=== PATIENT | male | born 1965 | race Caucasian/White ===

== ENCOUNTER 2016-06-05 15:15 | Emergency (ER) | payer OTHER ==
[2016-06-05] MEDS ORDERED: CYCLOBENZAPRINE HCL 10 MG TABLET PO ONE (16:04)
[2016-06-05] MEDS ORDERED: ACETAMINOPHEN 325 MG TABLET PO ONE (16:04)
--- NOTE | 2016-06-05 16:10 | ER Document Report ---
HPI - HPI Patient complains to provider of: back pain Pain Level: 4 Context: Patient is a 50-year-old male presents emergency Department complaining of back pain. Patient states he was bending over to pick something up off the ground when he stood up quickly and felt a tweak in his back. Patient is been ambulatory minor limp due to pain in his back with radiation along the sciatic nerve along the left side. Denies any numbness or tingling feeling in his feet. Denies any urinary/incontinence, saddle anesthesia Past medical history significant for previous femur fracture the right leg. - DERM Skin Color: Normal Past Medical History - Social History Smoking Status: Current Every Day Smoker Family History: Reviewed & Not Pertinent Patient has suicidal ideation: No Patient has homicidal ideation: No Renal/ Medical History: Denies: Hx Peritoneal Dialysis Vertical Provider Document - CONSTITUTIONAL Agree With Documented VS: Yes Exam Limitations: No Limitations General Appearance: WD/WN, No Apparent Distress - INFECTION CONTROL TRAVEL OUTSIDE OF THE [place] IN LAST 30 DAYS: No - HEENT HEENT: Atraumatic, Normal ENT Exam, Normocephalic, PERRLA - RESPIRATORY O2 Sat by Pulse Oximetry: 99 - CARDIOVASCULAR Pulses: Normal: Dorsalis pedis - BACK Back: Normal Inspection Notes: Pain to palpation over the left paraspinous muscle tenderness. No evidence of spinous process tenderness, deformity, step-offs. Full range of motion. - MUSCULOSKELETAL/EXTREMETIES Musculoskeletal/Extremeties: MAEW, FROM, Non-Tender, No Edema. negative: Eccymosis - NEURO Level of Consciousness: Awake, Alert, Appropriate Motor/Sensory: No Motor Deficit, No Sensory Deficit - DERM Integumentary: Warm, Dry, No Rash Course - Re-evaluation Re-evalutation: 06/05/16 20:26 The patient presents with low back pain without signs of spinal cord compression , cauda equina syndrome, infection, aneurysm, or other serious etiology. The patient is neurologically intact. Given the extremely low risk of these diagnoses further testing and evaluation for these possibilities does not appear to be indicated at this time. The patient has been instructed to return if the symptoms worsen or change in any way. - Vital Signs Vital signs: Temp Pulse Resp BP Pulse Ox 97.6 F 98 18 137/81 H 99 06/05/16 15:23 06/05/16 15:23 06/05/16 15:23 06/05/16 15:23 06/05/16 15:23 Discharge - Discharge Clinical Impression: Back spasm Condition: Good Disposition: HOME, SELF-CARE Instructions: Ice Packs ([facility]), Warm Packs ([facility]), Low Back Pain ([facility]), Muscle Strain ([facility]), Muscle Relaxers ([facility]), Acetaminophen Prescriptions: Cyclobenzaprine HCl [Flexeril 10 mg Tablet] 10 mg PO TIDP PRN #15 tab PRN Reason: Forms: Elevated Blood Pressure, Special Work Note, Return to Work Referrals: DAVE ROA MD [COMMUNITY BASED STAFF] - Follow up as needed
[2016-06-05 16:47] VITALS: BP 129/75
== END 2016-06-05 16:38 | disposition home or self-care (01) ==
LOC: ER 15:15
DX: M62.830 Muscle spasm of back (principal); M54.9 Dorsalgia, unspecified; F17.200 Nicotine dependence, unspecified, uncomplicated
CPT/HCPCS: 99283

== ENCOUNTER 2017-02-28 23:32 | Emergency (ER) | payer SELFPAY ==
[2017-03-01] MEDS ORDERED: HYDROMORPHONE HCL INJ/PF 2 MG/ML AMPULE IV ONE ×2 (00:41→03:26)
[2017-03-01] MEDS ORDERED: ONDANSETRON HCL INJ/PF 4 MG/2 ML SDV IV ONE (00:41)
[2017-03-01] MEDS ORDERED: NORMAL SALINE 1000 ML 1,000 ML IV ONE (00:41)
--- NOTE | 2017-03-01 00:46 | ER Document Report ---
ED General - General Chief Complaint: Abdominal Pain Stated Complaint: ABDOMINAL PAIN Time Seen by Provider: 03/01/17 00:37 Notes: Patient is a 51-year-old male presents with complaint of abdominal pain and vomiting. Pain is a right upper quadrant. Month ago seen at the ER in [place] and diagnosed with gallbladder disease. He was a prisoner at that time so was sent back to [facility] to follow-up with a surgeon outpatient. He has not followed up with a surgeon. He has had a few episodes since then but denies sores. His vomiting is been intractable. He denies any fevers. No blood in his emesis. No blood in the stool. He is a smoker but does not drink alcohol. He denies any previous history of abdominal surgeries. No other complaints at this time. TRAVEL OUTSIDE OF THE [place] IN LAST 30 DAYS: No - Related Data Allergies/Adverse Reactions: ibuprofen Allergy (Verified 06/05/16 15:25) Past Medical History - Social History Smoking Status: Unknown if Ever Smoked Frequency of alcohol use: None Drug Abuse: None Family History: Reviewed & Not Pertinent Patient has suicidal ideation: No Patient has homicidal ideation: No Renal/ Medical History: Denies: Hx Peritoneal Dialysis Past Surgical History: Reports: Hx Orthopedic Surgery - R LEG Review of Systems - Review of Systems Notes: My Normal Review Basic REVIEW OF SYSTEMS: CONSTITUTIONAL : Denies fever, chills, or sweats. Denies recent illness. EENT: Denies eye, ear, throat, or mouth pain or symptoms. Denies nasal or sinus congestion. CARDIOVASCULAR: Denies chest pain. RESPIRATORY: Denies cough, cold, or chest congestion. Denies shortness of breath, difficulty breathing, or wheezing. GASTROINTESTINAL: Right Upper quadrant abdominal pain and vomiting. MUSCULOSKELETAL: Denies neck or back pain or joint pain or swelling. SKIN: Denies rash or skin lesions. NEUROLOGICAL: Denies altered mental status or loss of consciousness. Denies headache. Denies weakness or paralysis or loss of use of either side. Denies problems with gait or speech. Denies sensory or motor loss. ALL OTHER SYSTEMS REVIEWED AND NEGATIVE. Physical Exam - Vital signs Vitals: Temp Pulse Resp BP Pulse Ox 97.8 F 63 22 H 132/74 H 98 02/28/17 23:34 02/28/17 23:34 02/28/17 23:34 02/28/17 23:34 02/28/17 23:34 - Notes Notes: General Appearance: Well nourished, alert, cooperative, no acute distress, moderate obvious discomfort. Complete vomiting. Vitals: reviewed, See vital signs table. Head: no swelling or tenderness to the head Eyes: PERRL, EOMI, Conjuctiva clear Mouth: No decreasd moisture Neck: Supple, no neck tenderness, No thyromegaly Lungs: No wheezing, No rales, No rhonci, No accessory muscle use, good air exchange bilaterally. Heart: Normal rate, Regular rythm, No murmur, no rub Abdomen: Normal BS, soft, No rigidity, pain to palpation of her right upper quadrant abdomen. The rest of his abdomen is just mildly tender to palpation., No guarding, no rebound, no abdominal masses, no organomegaly Extremities: strength 5/5 in all extremities, good pulses in all extremities, no swelling or tenderness in the extremities, no edema. Skin: warm, dry, appropriate color, no rash Neuro: speech clear, oriented x 3, normal affect, responds appropriately to questions. Course - Re-evaluation Re-evalutation: 03/01/17 03:26 Patient's vomiting is gone but he still has a lot of pain. We will given a dose of the dose pain medicine. His ultrasound is negative. I suspect he most likely has biliary dyskinesia. We will give him some pain medicine and reassess. - Vital Signs Vital signs: Temp Pulse Resp BP Pulse Ox 97.4 F 64 14 106/52 L 95 03/01/17 04:10 03/01/17 04:10 03/01/17 04:10 03/01/17 04:10 03/01/17 04:10 - Laboratory Result Diagrams: 03/01/17 01:06 03/01/17 01:06 Laboratory results interpreted by me: 03/01/17 03/01/17 01:06 01:06 WBC 14.5 H Hgb 17.1 H Seg Neutrophils % 88.3 H Lymphocytes % 6.3 L Absolute Neutrophils 12.8 H Potassium 5.4 H Glucose 146 H Discharge - Discharge Clinical Impression: Biliary dyskinesia Abdominal pain Qualifiers: Abdominal location: right upper quadrant Qualified Code(s): R10.11 - Right upper quadrant pain Condition: Good Disposition: HOME, SELF-CARE Additional Instructions: A GALLBLADDER DISEASE: Your evaluation shows evidence of gallbladder disease. The gallbladder is a pouch under the liver which stores bile. Stones, infection, or irritation of the gallbladder cause attacks of pain. Certain foods -- fats in particular -- may provoke attacks. The usual treatment for gallbladder disease is surgical removal of the gallbladder -- called a cholecystectomy. You will be referred to a physician qualified to advise you on the best treatment for your problem. Hospitalization is not necessary. Take clear liquids only until you are painfree. After that, you should stay on a low-fat diet, with frequent SMALL meals. Call the doctor or return at once if you develop severe pain, repeated vomiting, fever, or jaundice (a yellow color in the skin and whites of the eyes) . LOW-FAT DIET: The physician has recommended a low-fat diet. This diet is often used for gallbladder or pancreas problems. Your meals should be high-carbohydrate (potato, apples, noodles, breads, vegetables). Eat fish or skinless chicken (boiled or baked rather than fried) for protein. Beans and peas are good sources of fat-free protein. Soups are usually very low-fat. Don't eat anything fried. Avoid red meats. Avoid most dairy products. Skim milk and non-fat yogurt are OK. Most popular cheeses are very high-fat. Don't add butter or sauces -- use lemon or pepper instead. If you like salads, use one of the new "non-fat" dressings. "Fast Food" is "fat food." There is virtually nothing from a typical fast- food restaurant that you can eat. Fish patties and chicken nuggets are almost always deep-fat fried. "Special Sauces" are mostly fat. PAIN MEDICATION INJECTION: You have received an injection of a pain medication. You should experience significant pain relief within 45 minutes. This drug is a narcotic - - it will impair your judgement, slow your reaction time and make you sleepy ( as well as relieve your pain). Narcotics also can cause nausea. You should not drive, work with machinery, or perform any task requiring mental alertness until all effects of the medication are gone -- six to eight hours. Do not take any alcohol, or sedatives, and do not take any other medication without checking with your physician. ANT[place]AUSEA MEDICATION: You have been given a medication to suppress nausea and vomiting. This type of medication can be given as a shot, pill, or suppository. It will usually last for many hours. Pills and shots usually last six to eight hours, suppositories last about 12 hours. For the typical illness, only one or two doses of the medication may be necessary. Mild lightheadedness may occur. This type of medicine can cause drowsiness. Do not drive or operate dangerous machinery while under its influence. Do not mix with alcohol. See your doctor at once if you have muscle spasms or tightness, or uncontrollable motions (particularly of the neck, mouth, or jaw). Persistent vomiting or severe lightheadedness should also be evaluated by the physician. ORAL NARCOTIC MEDICATION: You have been given a prescription for pain control. This medication is a narcotic. It's best taken with food, as nausea can result if taken on an empty stomach. Don't operate machinery or drive within six hours of taking this medication. Do not combine this medicine with alcohol, or with any medication which can cause sedation (such as cold tablets or sleeping pills) unless you get permission from the physician. Narcotics tend to cause constipation. If possible, drink plenty of fluids and eat a diet high in fiber and fruits. Please be aware that prescription narcotics also have the potential for abuse. People become addicted to these medications because of the general sense of wellbeing that they induce. This feeling along with a significant reduction in tension, anxiety, and aggression provides a stimulating seductive quality to these drugs. Once your pain is under control, we encourage you to discard your unused narcotics. FOLLOW-UP CARE: If you have been referred to a physician for follow-up care, call the physician s office for an appointment as you were instructed or within the next two days. If you experience worsening or a significant change in your symptoms, notify the physician immediately or return to the Emergency Department at any time for re-evaluation. Please eat a very low-fat diet. As discussed with you your gallbladder shows no signs of infection at this time; however, this can still occur in the future. He therefore should have a low threshold to return to the ER immediately if you have worsening pain, recurrent vomiting, fevers, or feel unwell. I suspect that your gallbladder is not functioning appropriately and that is why you are having these episodes of pain and vomiting. Please avoid all fatty foods. Please take medication as prescribed. Please follow-up with the surgeon closely. Prescriptions: Hydrocodone/Acetaminophen [[place] 5-325 mg Tablet] 1 tab PO Q4 PRN #16 tablet PRN Reason: For Breakthrough Pain Ondansetron [Zofran Odt 4 mg Tablet] 1 tab PO Q4H PRN #15 tab.rapdis PRN Reason: For Nausea/Vomiting Referrals: FRANCISCO NOVA MD [ACTIVE STAFF] - Follow up in 3-5 days (call this morning to arrange a follow up appointment.)
[2017-03-01 01:15] LABS: ABSOLUTE LYMPHOCYTES (AUTO) 0.9 10^3/uL (0.5-4.7); ABSOLUTE MONOCYTES (AUTO) 0.7 10^3/uL (0.1-1.4); ABSOLUTE NEUT (AUTO) 12.8 10^3/uL (1.7-8.2); BASOPHILS % (AUTO) 0.2 % (0-2); EOSINOPHILS % (AUTO) 0.2 % (0-6); HEMOGLOBIN 17.1 g/dL (13.5-17.0); LYMPHOCYTES % (AUTO) 6.3 % (13-45); MEAN CORPUSCULAR HEMOGLOBIN 30.9 pg (27.0-33.4); MEAN CORPUSCULAR HGB CONC 34.1 g/dL (32.0-36.0); MEAN CORPUSCULAR VOLUME 91 fl (80-97); PLATELET COUNT 243 10^3/uL (150-450); RED BLOOD COUNT 5.53 10^6/uL (4.35-5.55); RED CELL DISTRIBUTION WIDTH 13.2 % (11.5-14.0); SEGMENTED NEUTROPHILS % (AUTO) 88.3 % (42-78); TOTAL CELLS COUNTED % (AUTO) 100 %; WHITE BLOOD COUNT 14.5 10^3/uL (4.0-10.5)
[2017-03-01 01:38] LABS: ALANINE AMINOTRANSFERASE 55 U/L (21-72); ALBUMIN 4.5 g/dL (3.5-5.0); ALKALINE PHOSPHATASE 67 U/L (38-126); ANION GAP 10 (5-19); ASPARTATE AMINO TRANSFERASE 33 U/L (17-59); BILIRUBIN,DIRECT 0.2 mg/dL (0.0-0.4); BILIRUBIN,TOTAL 0.5 mg/dL (0.2-1.3); BLOOD UREA NITROGEN 9 mg/dL (7-20); CALCIUM 10.2 mg/dL (8.4-10.2); CARBON DIOXIDE 30 mmol/L (22-30); CHLORIDE 101 mmol/L (98-107); GLUCOSE 146 mg/dL (75-110); POTASSIUM 5.4 mmol/L (3.6-5.0); TOTAL PROTEIN 7.2 g/dL (6.3-8.2)
--- NOTE | 2017-03-01 03:14 | RADIOLOGY REPORT (SQ) ---
EXAM DESCRIPTION: U/S ABDOMEN LTD W/DOPPLER CLINICAL HISTORY: RUQ pain, abd. COMPARISON: None. TECHNIQUE: Real-time sonographic images of the right upper abdomen were obtained using a curved multihertz transducer. FINDINGS: The visualized portions of the pancreas are unremarkable. The visualized portions of the aorta and IVC are unremarkable. The liver has normal contour and increased echogenicity. Hepatopedal flow in the portal vein. The common bile duct measures 0.5 cm. The gallbladder has a normal appearance. No gallstones identified. No wall thickening or pericholecystic fluid. The right kidney measures 11.5 cm in length. No hydronephrosis, solid renal mass, or shadowing calculi. IMPRESSION: 1. No gallstones. 2. Hepatic steatosis.
[2017-03-01 04:10] VITALS: BP 106/52
[2017-03-01] MEDS ORDERED: HYDROCODONE/ACETAMINOPHEN 5-325 MG (6 TAB/ER DISP) PO PRN (04:23)
== END 2017-03-01 04:25 | disposition home or self-care (01) ==
LOC: ER 23:32
DX: K82.8 Other specified diseases of gallbladder (principal); R10.11 Right upper quadrant pain; R11.10 Vomiting, unspecified; Z88.6 Allergy status to analgesic agent
CPT/HCPCS: 96376; 99284; 96361; 96374; 96375; 36415; 83690; 85025; 80053; 76705; 93976; J1170; J2405; J7030

== ENCOUNTER 2017-03-21 08:37 | Observation (INO) | payer SELFPAY ==
[2017-03-21] MEDS ORDERED: MORPHINE SULFATE 10 MG/ML INJ IV ONE ×3 (09:32→13:05)
[2017-03-21] MEDS ORDERED: ONDANSETRON HCL INJ/PF 4 MG/2 ML SDV IV ONE ×2 (09:32→13:05)
--- NOTE | 2017-03-21 09:32 | ER Document Report ---
ED GI/ - General Chief Complaint: Abdominal Pain Stated Complaint: ABDOMINAL PAIN Time Seen by Provider: 03/21/17 09:27 Notes: Patient is a 51-year-old male who presents emergency department complaining of sudden onset right upper quadrant pain with associated nausea vomiting this morning. Patient states that he has had multiple episodes of this over the past 6 months and diagnosed with gallbladder disease. Patient states that he has presented to the ER like this multiple times and told that his gallbladder does not require emergent removal. Patient states that he does not have insurance therefore has not been able to follow-up with a surgeon. He denies any fevers, chills. Admits to right upper quadrant sharp stabbing pain radiating into his back with associated epigastric pain, nausea and vomiting. Patient states that in the past he has had pain medication which helps ease the pain and is good for a month or 2 and then has return of symptoms. Past medical history denies Social history denies any drug use TRAVEL OUTSIDE OF THE [place] IN LAST 30 DAYS: No - Related Data Allergies/Adverse Reactions: ibuprofen Allergy (Verified 03/21/17 08:42) Past Medical History - Social History Smoking Status: Current Every Day Smoker Family History: Reviewed & Not Pertinent Renal/ Medical History: Denies: Hx Peritoneal Dialysis Past Surgical History: Reports: Hx Orthopedic Surgery - R LEG Review of Systems - Review of Systems Constitutional: No symptoms reported Cardiovascular: No symptoms reported Respiratory: No symptoms reported Gastrointestinal: See HPI Genitourinary: No symptoms reported -: Yes All other systems reviewed and negative Physical Exam - Vital signs Vitals: Temp Pulse Resp BP Pulse Ox 97.7 F 66 20 140/91 H 100 03/21/17 08:42 03/21/17 08:42 03/21/17 08:42 03/21/17 08:42 03/21/17 08:42 - Notes Notes: PHYSICAL EXAM GENERAL: Alert, interacts well. HEAD: Normocephalic, atraumatic. EYES: Pupils equal, round, and reactive to light. Extraocular movements intact. ENT: Oral mucosa moist, tongue midline. NECK: Full range of motion. Supple. Trachea midline. LUNGS: Clear to auscultation bilaterally, no wheezes, rales, or rhonchi. No respiratory distress. HEART: Regular rate and rhythm. No murmurs, gallops, or rubs. ABDOMEN: Soft, nondistended, moderate tenderness to palpation of the right upper quadrant. Positive Gomes's sign. No guarding, rebound, or rigidity.. Bowel sounds present in all 4 quadrants. EXTREMITIES: Moves all 4 extremities spontaneously. No edema, radial and dorsalis pedis pulses 2/4 bilaterally. No cyanosis. NEUROLOGICAL: Alert and oriented x4. Normal speech. PSYCH: Normal affect, normal mood. SKIN: Warm, dry, normal turgor. No rashes or lesions noted. Course - Re-evaluation Re-evalutation: 03/21/17 12:44 Patient is a 51-year-old male who is hemodynamically stable, no acute distress and afebrile. CBC stable without evidence of leukocytosis or anemia, electrolytes stable without evidence of significant dehydration, electrolyte abnormalities, acute renal failure or elevated liver enzymes. Urinalysis clean. Toxicology to show evidence of cocaine when discussed with the patient he does admit his last use was 4 days ago but it is not a habitual user. His right upper quadrant ultrasound does not show any evidence of gallbladder disease. 03/21/17 13:04 Patient given a GI cocktail to rule out any cause of gastritis because but patient immediately threw it up. Still significantly tender in the epigastric and right upper quadrant region. Patient will be sent for CT of the abdomen and pelvis with p.o. and IV contrast. Patient remedicated agrees with plan 03/21/17 18:07 CT the abdomen and pelvis shows evidence of cholelithiasis without cholecystitis. Reviewed scan and ultrasound results with surgeon vocational rehabilitation administrator Dr. Allen who has evaluated the patient agrees to admit him for surgery tomorrow. Did review with him that his drug screen did come back positive for cocaine. Patient is agreeable with plan will be n.p.o. at midnight - Vital Signs Vital signs: Temp Pulse Resp BP Pulse Ox 99.3 F 56 L 20 149/72 H 97 03/21/17 17:00 03/21/17 17:00 03/21/17 17:00 03/21/17 17:00 03/21/17 17:00 - Laboratory Result Diagrams: 03/21/17 09:05 03/21/17 09:05 Laboratory results interpreted by me: 03/21/17 03/21/17 09:05 09:05 RBC 5.99 H Hgb 18.4 H Hct 54.5 H Carbon Dioxide 32 H ALT 75 H - Diagnostic Test Radiology reviewed: Image reviewed, Reports reviewed Discharge - Discharge Clinical Impression: Cholelithiasis Condition: Stable Disposition: ADMITTED INPATIENT Admitting Provider: Surgicalist Unit Admitted: Surgical Floor
[2017-03-21 09:41] LABS: ABSOLUTE EOSINOPHILS # (AUTO) 0.3 10^3/uL (0.0-0.6); ABSOLUTE LYMPHOCYTES (AUTO) 1.7 10^3/uL (0.5-4.7); ABSOLUTE MONOCYTES (AUTO) 0.7 10^3/uL (0.1-1.4); ABSOLUTE NEUT (AUTO) 6.6 10^3/uL (1.7-8.2); BASOPHILS % (AUTO) 0.4 % (0-2); EOSINOPHILS % (AUTO) 3.1 % (0-6); HEMATOCRIT 54.5 % (37.9-51.0); HEMOGLOBIN 18.4 g/dL (13.5-17.0); MEAN CORPUSCULAR HEMOGLOBIN 30.7 pg (27.0-33.4); MEAN CORPUSCULAR HGB CONC 33.7 g/dL (32.0-36.0); MEAN CORPUSCULAR VOLUME 91 fl (80-97); MONOCYTES % (AUTO) 7.7 % (3-13); PLATELET COUNT 315 10^3/uL (150-450); RED BLOOD COUNT 5.99 10^6/uL (4.35-5.55); SEGMENTED NEUTROPHILS % (AUTO) 70.8 % (42-78); TOTAL CELLS COUNTED % (AUTO) 100 %; WHITE BLOOD COUNT 9.4 10^3/uL (4.0-10.5)
[2017-03-21 09:56] LABS: ALANINE AMINOTRANSFERASE 75 U/L (21-72); ALBUMIN 4.8 g/dL (3.5-5.0); ALKALINE PHOSPHATASE 66 U/L (38-126); ANION GAP 10 (5-19); ASPARTATE AMINO TRANSFERASE 39 U/L (17-59); BILIRUBIN,DIRECT 0.4 mg/dL (0.0-0.4); BILIRUBIN,TOTAL 0.5 mg/dL (0.2-1.3); BLOOD UREA NITROGEN 7 mg/dL (7-20); CARBON DIOXIDE 32 mmol/L (22-30); CHLORIDE 99 mmol/L (98-107); GLUCOSE 109 mg/dL (75-110); LIPASE 255.4 U/L (23-300); POTASSIUM 4.8 mmol/L (3.6-5.0); SODIUM 141.3 mmol/L (137-145); TOTAL PROTEIN 7.7 g/dL (6.3-8.2)
[2017-03-21] MEDS ORDERED: NORMAL SALINE 1000 ML 1,000 ML IV ONE ×2 (09:58→19:30)
[2017-03-21 11:29] LABS: APPEARANCE,URINE CLEAR; BILIRUBIN,URINE NEGATIVE (NEGATIVE); COLOR,URINE YELLOW; GLUCOSE, URINE NEGATIVE (NEGATIVE); KETONES,URINE NEGATIVE (NEGATIVE); LEUKOCYTE ESTERASE,URINE NEGATIVE (NEGATIVE); NITRITE,URINE NEGATIVE (NEGATIVE); PROTEIN,URINE NEGATIVE (NEGATIVE); UROBILINOGEN,URINE NEGATIVE mg/dL (<2.0)
[2017-03-21 11:46] LABS: URINE AMPHETAMINES SCREEN NEGATIVE; URINE BARBITURATES SCREEN NEGATIVE; URINE BENZODIAZEPINES SCREEN NEGATIVE; URINE COCAINE SCREEN UNCONFIRMED POSITIVE; URINE MARIJUANA (THC) SCREEN NEGATIVE; URINE METHADONE SCREEN NEGATIVE; URINE PHENCYCLIDINE SCREEN NEGATIVE
[2017-03-21] MEDS ORDERED: PANTOPRAZOLE SODIUM 40 MG VIAL IV ONE (12:26)
--- NOTE | 2017-03-21 12:34 | RADIOLOGY REPORT (SQ) ---
EXAM DESCRIPTION: U/S ABDOMEN LIMITED W/O DOP COMPLETED DATE/TIME: 03/21/2017 11:56 am REASON FOR STUDY: RUQ pain, n/v COMPARISON: 02/19/2017 TECHNIQUE: Dynamic and static grayscale images acquired of the abdomen and recorded on PACS. Stefanyo gavino selected color Doppler and spectral images recorded. LIMITATIONS: None. FINDINGS: PANCREAS: Not visualized. LIVER: Enlarged fatty liver measuring 19.2 cm. No liver masses. LIVER VASCULATURE: Normal directional flow of the main portal vein and hepatic veins. GALLBLADDER: No stones. Normal wall thickness. No pericholecystic fluid. ULTRASOUND-DETECTED WIGGINS'S SIGN: Negative. INTRAHEPATIC DUCTS AND COMMON DUCT: CBD and intrahepatic ducts normal caliber. No filling defects. INFERIOR VENA CAVA: Normal flow. AORTA: No aneurysm. RIGHT KIDNEY: Normal size. Normal echogenicity. No solid or suspicious masses. No hydronephrosis. No calcifications. PERITONEAL AND RIGHT PLEURAL SPACE: No ascites or effusions. OTHER: No other significant findings. IMPRESSION: 1. Normal-appearing gallbladder. 2. Enlarged fatty liver. TECHNICAL DOCUMENTATION: JOB ID: [id number] [employer]- All Rights Reserved
[2017-03-21] MEDS ORDERED: MAG HYDROX/AL HYDROX/SIMETH SUSP 30 ML UDCUP PO ONE (12:43)
[2017-03-21] MEDS ORDERED: LIDOCAINE 2% VISCOUS SOLN 20 ML UDCUP PO ONE (12:43)
[2017-03-21] MEDS ORDERED: METOCLOPRAMIDE HCL ORAL SOLN 10 MG/10 ML UDCUP PO ONE (12:43)
--- NOTE | 2017-03-21 16:17 | RADIOLOGY REPORT (SQ) ---
EXAM DESCRIPTION: CT ABD/PELVIS WITH IV ORAL COMPLETED DATE/TIME: 03/21/2017 4:06 pm REASON FOR STUDY: epigastric pain, RUQ pain, vomiting COMPARISON: Abdominal ultrasound from earlier. TECHNIQUE: CT scan of the abdomen and pelvis performed with intravenous and oral contrast using mauri alice scanning technique with dynamic intravenous contrast injection. Images reviewed with lung, soft t issue, and bone windows. Reconstructed coronal and sagittal MPR images reviewed. Delayed images for e valuation of the urinary system also acquired. All images stored on PACS. All CT scanners at this facility use dose modulation, iterative reconstruction, and/or weight based d osing when appropriate to reduce radiation dose to as low as reasonably achievable (ALARA). [facility]: Dose Right [facility]: CareDose [facility]: Dose Right [facility]: Teradose 4D [facility]: [employer] Systems CONTRAST TYPE AND DOSE: contrast/concentration: Isovue 370.00 mg/ml; Total Contrast Delivered: 100.0 ml; Total Saline Delivered: 45.0 ml RENAL FUNCTION: Creatinine 0.9 RADIATION DOSE: CT Rad equipment meets quality standard of care and radiation dose reduction techniq ues were employed. CTDIvol: NaN - NaN mGy. DLP: 0 mGy-cm.. LIMITATIONS: None. FINDINGS: LOWER CHEST: No significant findings. No nodules or infiltrates. LIVER: Diffuse fatty parenchyma. No mass or duct dilatation. SPLEEN: Normal size. No focal lesions. PANCREAS: No masses. No significant calcifications. No adjacent inflammation or peripancreatic fluid collections. Pancreatic duct not dilated. GALLBLADDER: Small dependent densities in the gallbladder suggesting tiny stones. Not seen on recent ultrasound, possibly due to location in the gallbladder neck or obscuring adjacent bowel gas. No wa ll thickening or pericholecystic fluid. No evidence of acute gallbladder disease. ADRENAL GLANDS: No significant masses or asymmetry. RIGHT KIDNEY AND URETER: No solid masses. No significant calcification. No hydronephrosis or hydroure ter. LEFT KIDNEY AND URETER: No solid masses. No significant calcification. No hydronephrosis or hydrouret er. AORTA AND VESSELS: No aneurysm. No dissection. Renal arteries, SMA, celiac without stenosis. RETROPERITONEUM: No retroperitoneal adenopathy, hemorrhage or masses. BOWEL AND PERITONEAL CAVITY: Distal colonic diverticulosis but no active inflammatory changes. No judy wel dilatation ascites or abnormal gas. APPENDIX: Normal. PELVIS: No significant masses. Normal bladder. No free fluid. ABDOMINAL WALL: No masses. No hernias. BONES: Lumbar spondylosis. OTHER: No other significant finding. IMPRESSION: 1. No acute abdominopelvic abnormality. 2. Cholelithiasis. 3. Fatty liver. 4. Mild d iverticulosis without active diverticulitis suggested. TECHNICAL DOCUMENTATION: JOB ID: [id number] Quality ID # [id number]: Final reports with documentation of one or more dose reduction techniques (e.g., Au tomated exposure control, adjustment of the mA and/or kV according to patient size, use of iterative reconstruction technique) 2010 [employer]- All Rights Reserved
[2017-03-21] MEDS ORDERED: HYDROMORPHONE HCL INJ/PF 2 MG/ML AMPULE IV PRN (17:48)
[2017-03-21] MEDS ORDERED: ONDANSETRON HCL INJ/PF 4 MG/2 ML SDV IV PRN (18:20)
--- NOTE | 2017-03-21 18:20 | PDOC H&P ---
History of Present Illness Admission Date/PCP: 03/21/17 Patient complains of: Ruq pains History of Present Illness: CARLOS EVANGELISTA is a 51 year old male c/o RUQ pains radiating to the back around 3 am today after eating potato chips for dinner. at 7:30 pains got worse and associated with N/V and went to ED. US was negative for gallstone but CT scan showed gallstone. Past Medical History Medical History: None Past Surgical History Past Surgical History: Reports: Orthopedic Surgery - R LEG Social History Smoking Status: Current Every Day Smoker Frequency of Alcohol Use: None Drugs: Cocaine Hx Prescription Drug Abuse: No Family History Family History: Reviewed & Not Pertinent Parental Family History Reviewed: Yes - father has DM Children Family History Reviewed: No Sibling(s) Family History Reviewed.: No Medication/Allergy Home Medications: Cyclobenzaprine HCl [Flexeril 10 mg Tablet] 10 mg PO TIDP PRN #15 tab 06/05/16 Hydrocodone/Acetaminophen [[place] 5-325 mg Tablet] 1 tab PO Q4 PRN #16 tablet Hydrocodone/Acetaminophen [[place] 5-325 mg Tablet] 1 tab PO Q4H PRN #16 tablet Ondansetron [Zofran Odt 4 mg Tablet] 1 tab PO Q4H PRN #15 tab.rapdis 03/01/17 Allergies/Adverse Reactions: ibuprofen Allergy (Verified 03/21/17 08:42) Review of Systems Constitutional: PRESENT: chills Eyes: PRESENT: other - no vis/hearing changes Nose, Mouth, and Throat: PRESENT: other - no sore throat Cardiovascular: PRESENT: other - no chest pains Respiratory: PRESENT: other - no cough Gastrointestinal: PRESENT: abdominal pain, nausea, vomiting Genitourinary: PRESENT: other - no dysuria Musculoskeletal: PRESENT: back pain Integumentary: PRESENT: other - no rash Neurological: PRESENT: other - no seizures Psychiatric: PRESENT: anxiety Endocrine: PRESENT: other - no polyuria Hematologic/Lymphatic: PRESENT: other - no easy bruisability Physical Exam Vital Signs: Temp Pulse Resp BP Pulse Ox 99.3 F 56 L 20 149/72 H 97 03/21/17 17:00 03/21/17 17:00 03/21/17 17:00 03/21/17 17:00 03/21/17 17:00 Intake & Output 03/20/17 03/21/17 03/22/17 06:59 06:59 06:59 Weight 103.1 kg General appearance: PRESENT: severe distress Head exam: PRESENT: atraumatic Eye exam: PRESENT: conjunctiva pink Mouth exam: PRESENT: moist, tongue midline Neck exam: PRESENT: full ROM Respiratory exam: PRESENT: clear to auscultation valerio Cardiovascular exam: PRESENT: RRR Pulses: PRESENT: normal radial pulses GI/Abdominal exam: PRESENT: soft, tenderness - tender RUQ Rectal exam: PRESENT: deferred Extremities exam: PRESENT: full ROM Musculoskeletal exam: PRESENT: ambulatory Neurological exam: PRESENT: alert, oriented to person, oriented to place, oriented to time, oriented to situation Psychiatric exam: PRESENT: anxious Skin exam: PRESENT: normal color, warm Results Laboratory Results: 03/21/17 09:05 03/21/17 09:05 03/21/17 03/21/17 03/21/17 09:05 09:05 10:30 WBC 9.4 RBC 5.99 H Hgb 18.4 H Hct 54.5 H MCV 91 MCH 30.7 MCHC 33.7 RDW 13.0 Plt Count 315 Seg Neutrophils % 70.8 Lymphocytes % 18.0 Monocytes % 7.7 Eosinophils % 3.1 Basophils % 0.4 Absolute Neutrophils 6.6 Absolute Lymphocytes 1.7 Absolute Monocytes 0.7 Absolute Eosinophils 0.3 Absolute Basophils 0.0 Sodium 141.3 Potassium 4.8 Chloride 99 Carbon Dioxide 32 H Anion Gap 10 BUN 7 Creatinine 0.91 Est GFR ( Amer) > 60 Est GFR (Non-Af Amer) > 60 Glucose 109 Calcium 10.0 Total Bilirubin 0.5 AST 39 ALT 75 H Alkaline Phosphatase 66 Total Protein 7.7 Albumin 4.8 Lipase 255.4 Urine Color YELLOW Urine Appearance CLEAR Urine pH 6.0 Ur Specific [place] 1.020 Urine Protein NEGATIVE Urine Glucose (UA) NEGATIVE Urine Ketones NEGATIVE Urine Blood NEGATIVE Urine Nitrite NEGATIVE Ur Leukocyte Esterase NEGATIVE Urine WBC (Auto) 1 Urine RBC (Auto) 1 Impressions: Abdomen/Pelvis CT 03/21/17 00:00 IMPRESSION: 1. No acute abdominopelvic abnormality. 2. Cholelithiasis. 3. Fatty liver. 4. Mild diverticulosis without active diverticulitis suggested. Abdomen Ultrasound 03/21/17 09:27 IMPRESSION: 1. Normal-appearing gallbladder. 2. Enlarged fatty liver. Assessment & Plan - Diagnosis (1) Acute cholecystitis due to biliary calculus Is this a current diagnosis for this admission?: Yes - Time Time Spent: 30 to 50 Minutes - Inpatient Certification Based on my medical assessment, after consideration of the patient's comorbidities, presenting symptoms, or acuity I expect that the services needed warrant INPATIENT care.: Yes I certify that my determination is in accordance with my understanding of Medicare's requirements for reasonable and necessary INPATIENT services [42 CFR 412.3e].: Yes Medical Necessity: Need For IV Fluids, Need For Continuous Telemetry Monitoring , Need for Pain Control, Need for IV Antibiotics, Need for Surgery, Risk of Complication if Not Cared For in Hospital - Plan Summary Plan Summary: Keep NPO Repeat urine toxicology tomorrow Start IV antibiotics Hydrate Admit to monitored bed with + cocaine in urine Possible cholecystectomy tomorrow
[2017-03-21] MEDS: HYDROMORPHONE HCL INJ/PF 2 MG/ML AMPULE IV PRN ×2 (20:09→22:33)
[2017-03-21] MEDS ORDERED: PIPERACILLIN/TAZOBACTAM 3.375 GM VIAL IV SCH (21:00)
[2017-03-21] MEDS ORDERED: PIPERACILLIN SODIUM/TAZOBACTAM 3.375 GM in NORMAL SALINE 100 ML IV ONE (22:30)
[2017-03-21] MEDS ORDERED: NORMAL SALINE 1000 ML 1,000 ML IV PRN (22:44)
[2017-03-22] MEDS: HYDROMORPHONE HCL INJ/PF 2 MG/ML AMPULE IV PRN ×4 (01:09→11:20)
[2017-03-22] MEDS ORDERED: PIPERACILLIN SODIUM/TAZOBACTAM 3.375 GM in NORMAL SALINE 100 ML IV SCH (03:00)
[2017-03-22] MEDS: PIPERACILLIN SODIUM/TAZOBACTAM 3.375 GM in NORMAL SALINE 100 ML IV SCH ×4 (03:03→21:55)
[2017-03-22] MEDS ORDERED: NORMAL SALINE 1000 ML 1,000 ML IV PRN ×2 (07:00→15:46)
--- NOTE | 2017-03-22 09:12 | PDOC PROGRESS REPORT ---
Subjective Progress Note for:: 03/22/17 Subjective:: Right upper quadrant abdominal pain Reason For Visit: ACUTE CHOLECYSTITIS, CHOLEITHIASIS, COCAINE IN Physical Exam Vital Signs: Temp Pulse Resp BP Pulse Ox 97.5 F 69 19 116/75 95 03/22/17 08:06 03/22/17 08:06 03/22/17 08:06 03/22/17 08:06 03/22/17 08:06 Intake & Output 03/21/17 03/22/17 03/23/17 06:59 06:59 06:59 Output Total 1000 Balance -1000 Weight 103.5 kg General appearance: PRESENT: no acute distress, cooperative Respiratory exam: PRESENT: clear to auscultation valerio Cardiovascular exam: PRESENT: RRR GI/Abdominal exam: PRESENT: other - Soft, nondistended, focal tenderness to palpation of the right upper quadrant without peritoneal signs Neurological exam: PRESENT: alert, awake Psychiatric exam: PRESENT: appropriate affect Results Impressions: Abdomen/Pelvis CT 03/21/17 00:00 IMPRESSION: 1. No acute abdominopelvic abnormality. 2. Cholelithiasis. 3. Fatty liver. 4. Mild diverticulosis without active diverticulitis suggested. Abdomen Ultrasound 03/21/17 09:27 IMPRESSION: 1. Normal-appearing gallbladder. 2. Enlarged fatty liver. Assessment & Plan - Diagnosis (1) Acute cholecystitis due to biliary calculus Is this a current diagnosis for this admission?: Yes Plan: Plan laparoscopic cholecystectomy. I have discussed with the patient the risk and benefits of the procedure including risk of open procedure, infection, bleeding, adjacent structure injury such as bile duct and intestinal injury, as well as mistaken diagnosis and postcholecystectomy diarrhea. Patient understands and agrees to proceed.
[2017-03-22] MEDS ORDERED: ONDANSETRON HCL INJ/PF 4 MG/2 ML SDV IV PRN ×3 (09:30→15:44)
[2017-03-22] MEDS ORDERED: VECURONIUM BROMIDE INJ 10 MG VIAL IV ONE (10:33)
[2017-03-22] MEDS ORDERED: NEOSTIGMINE METHYLSULFATE 10 MG/10 ML VIAL ONE (10:33)
[2017-03-22] MEDS ORDERED: SUCCINYLCHOLINE CHLORIDE INJ 200 MG/10 ML VIAL ONE (10:33)
[2017-03-22] MEDS ORDERED: GLYCOPYRROLATE INJ 0.4 MG/2 ML VIAL ONE (10:33)
[2017-03-22] MEDS ORDERED: BUPIVACAINE HCL 0.25 % INJ/PF (2.5 MG/1 ML) 30 ML VIAL ONE (13:17)
[2017-03-22] MEDS ORDERED: ONDANSETRON HCL INJ/PF 4 MG/2 ML SDV ONE (13:43)
[2017-03-22] MEDS ORDERED: LIDOCAINE 2% INJ-PF (20 MG/ML) 10 ML AMPUL ONE (13:43)
[2017-03-22] MEDS ORDERED: FENTANYL CITRATE INJ/PF 100 MCG/2 ML AMPUL ONE (13:43)
[2017-03-22] MEDS ORDERED: MIDAZOLAM 2 MG/2 ML INJ ONE (13:43)
[2017-03-22] MEDS ORDERED: DEXAMETHASONE SOD PHOSPHATE INJ 4 MG/1 ML VIAL ONE (13:43)
[2017-03-22] MEDS ORDERED: HYDROMORPHONE HCL INJ/PF 2 MG/ML AMPULE ONE (13:44)
[2017-03-22] MEDS ORDERED: PROPOFOL INJ 200 MG/20 ML VIAL IV ONE (13:44)
[2017-03-22] MEDS ORDERED: ACETAMINOPHEN 100 ML IV ONE (13:44)
[2017-03-22] MEDS ORDERED: EPHEDRINE SULFATE INJ 50 MG/1 ML AMPULE ONE (14:34)
[2017-03-22] MEDS ORDERED: FENTANYL CITRATE INJ/PF 100 MCG/2 ML AMPUL IV PRN ×3 (14:44)
[2017-03-22] MEDS ORDERED: MORPHINE SULFATE 10 MG/ML INJ IV PRN (14:44)
[2017-03-22] MEDS ORDERED: DIPHENHYDRAMINE HCL 50 MG/ML VIAL IV PRN (14:44)
[2017-03-22] MEDS ORDERED: OXYCODONE-ACETAMINOPHEN 5-325 MG TABLET PO PRN ×2 (14:44)
[2017-03-22] MEDS ORDERED: PROMETHAZINE HCL INJ 25 MG/1 ML VIAL IV PRN ×2 (14:44)
[2017-03-22] MEDS ORDERED: MEPERIDINE HCL/PF INJ 25 MG/1 ML DISP.SYRIN IV PRN (14:44)
--- NOTE | 2017-03-22 15:44 | Operative Report ---
Operative Report DATE OF SURGERY: 03/22/17 PREOPERATIVE DIAGNOSIS: Acute cholecystitis POSTOPERATIVE DIAGNOSIS: Gangrenous cholecystitis OPERATION: Laparoscopic cholecystectomy SURGEON: CHRISSIE ATKINS ANESTHESIA: GA TISSUE REMOVED OR ALTERED: Gallbladder COMPLICATIONS: None ESTIMATED BLOOD LOSS: 100 cc INTRAOPERATIVE FINDINGS: Markedly inflamed thick-walled gallbladder with cloudy fluid within with gangrenous changes of the gallbladder wall. Gallstones PROCEDURE: Informed consent was obtained. Patient was brought to the operating room placed operating table in supine position. After satisfactory induction of general anesthesia, patient's abdomen was prepped and draped in usual sterile fashion. A supraumbilical midline incision was made and dissection carried down to the fascia the peritoneal cavity entered without difficulty. Degroot trocar was inserted. Pneumoperitoneum produced good patient toleration. 5 mm trocar was placed in the subxiphoid location.Two 5 mm trochars were placed in the right subcostal location. The gallbladder appear markedly inflamed and the wall markedly thickened. It had to be decompressed with a decompression needle yielding cloudy fluid which was submitted for Gram stain and culture. The gallbladder was grasped and retracted cephalad over the dome of the liver. The infundibulum of the gallbladder was grasped retracted laterally and inferiorly thus exposing calot's triangle. Fatty encasement along with inflammatory changes made the dissection difficult. The cystic duct gallbladder junction was clearly identified and the cystic duct was clipped and divided. There was lodged gallstone in the cystic duct. Cystic artery was likewise taken. The gallbladder was taken off the gallbladder bed using the hook electrocautery technique. There was a posterior branch of the cystic artery which was also clipped and divided. Gangrenous changes of the gallbladder wall made the gallbladder removal very difficult. The plane was indistinct. There was spillage of gallbladder contents during the case and one stone spilled and this stone was retrieved.. The gallbladder was removed with an Endobag through the Degroot trocar site fascial defect. The operative field was copiously irrigated and irrigant aspirated out. Hemostasis appeared good. All trochars were removed under the direct vision a laparoscope to ensure hemostasis. The Degroot trocar site fascial defect was closed with interrupted Vicryl sutures. All skin incisions were closed with subcuticular interrupted Monocryl sutures. Marcaine was injected at the port sites. Patient tolerated procedure well no apparent complications and was taken to the recovery area in stable condition.
[2017-03-22] MEDS: MORPHINE SULFATE 10 MG/ML INJ IV PRN ×2 (18:53→22:57)
[2017-03-23] MEDS: PIPERACILLIN SODIUM/TAZOBACTAM 3.375 GM in NORMAL SALINE 100 ML IV SCH ×4 (02:12→20:06)
[2017-03-23] MEDS: MORPHINE SULFATE 10 MG/ML INJ IV PRN (05:24)
[2017-03-23 06:33] LABS: HEMATOCRIT 47.9 % (37.9-51.0); HEMOGLOBIN 16.4 g/dL (13.5-17.0); MEAN CORPUSCULAR HEMOGLOBIN 30.9 pg (27.0-33.4); MEAN CORPUSCULAR HGB CONC 34.3 g/dL (32.0-36.0); MEAN CORPUSCULAR VOLUME 90 fl (80-97); PLATELET COUNT 246 10^3/uL (150-450); RED BLOOD COUNT 5.31 10^6/uL (4.35-5.55); RED CELL DISTRIBUTION WIDTH 12.7 % (11.5-14.0); WHITE BLOOD COUNT 14.7 10^3/uL (4.0-10.5)
[2017-03-23 06:41] LABS: ALANINE AMINOTRANSFERASE 89 U/L (21-72); ALBUMIN 3.8 g/dL (3.5-5.0); ALKALINE PHOSPHATASE 55 U/L (38-126); ANION GAP 8 (5-19); ASPARTATE AMINO TRANSFERASE 53 U/L (17-59); BILIRUBIN,DIRECT 0.3 mg/dL (0.0-0.4); BILIRUBIN,TOTAL 1.1 mg/dL (0.2-1.3); BLOOD UREA NITROGEN 9 mg/dL (7-20); CALCIUM 9.7 mg/dL (8.4-10.2); CARBON DIOXIDE 30 mmol/L (22-30); CHLORIDE 99 mmol/L (98-107); GLUCOSE 83 mg/dL (75-110); POTASSIUM 4.7 mmol/L (3.6-5.0); SODIUM 137.1 mmol/L (137-145); TOTAL PROTEIN 6.3 g/dL (6.3-8.2)
[2017-03-23] MEDS: HYDROMORPHONE HCL INJ/PF 2 MG/ML AMPULE IV PRN ×2 (09:35→13:52)
--- NOTE | 2017-03-23 09:37 | PDOC PROGRESS REPORT ---
Subjective Progress Note for:: 03/23/17 Subjective:: Feels much much better. Reason For Visit: ACUTE CHOLECYSTITIS, CHOLEITHIASIS, COCAINE IN Physical Exam Vital Signs: Temp Pulse Resp BP Pulse Ox 97.8 F 63 19 151/88 H 97 03/23/17 07:57 03/23/17 07:57 03/23/17 07:57 03/23/17 07:57 03/23/17 08:00 Pulse Oximeter Continuous Start: 03/22/17 17: 19 Freq: Status: Complete Document 03/22/17 17:19 [facility] (Rec: 03/22/17 17:20 [facility] [email or web address]) Pulse Oximetry Assessment Oxygen Saturation (92-100) 94 Oxygen Flow Rate (L/min) 2 Oxygen Delivery Method Nasal Cannula Equipment Usage Initial Set Up Continuous Pulse Oximeter 24 Hour Charge Charge Now Continuous SpO2 Machine # [id number] Pulse Oximeter Continuous Start: 03/22/17 17: 15 Freq: RTQ4 Status: Active Document 03/23/17 08:00 [facility] (Rec: 03/23/17 09:26 [id number] [email or web address]) Pulse Oximetry Assessment Oxygen Saturation (92-100) 97 Oxygen Delivery Method Room Air Equipment Usage Equipment in Use Continuous SpO2 Machine # 9 Intake & Output 03/22/17 03/23/17 03/24/17 06:59 06:59 06:59 Intake Total 3850 Output Total 1000 3670 Balance -1000 180 Weight 103.5 kg 106.1 kg General appearance: PRESENT: no acute distress, cooperative Respiratory exam: PRESENT: clear to auscultation valerio Cardiovascular exam: PRESENT: RRR GI/Abdominal exam: PRESENT: other - Soft, nondistended, minimal tenderness. Results Laboratory Results: 03/23/17 05:32 03/23/17 05:32 03/23/17 03/23/17 05:32 05:32 WBC 14.7 H RBC 5.31 Hgb 16.4 Hct 47.9 MCV 90 MCH 30.9 MCHC 34.3 RDW 12.7 Plt Count 246 Sodium 137.1 Potassium 4.7 Chloride 99 Carbon Dioxide 30 Anion Gap 8 BUN 9 Creatinine 0.87 Est GFR ( Amer) > 60 Est GFR (Non-Af Amer) > 60 Glucose 83 Calcium 9.7 Total Bilirubin 1.1 AST 53 ALT 89 H Alkaline Phosphatase 55 Total Protein 6.3 Albumin 3.8 Impressions: Abdomen/Pelvis CT 03/21/17 00:00 IMPRESSION: 1. No acute abdominopelvic abnormality. 2. Cholelithiasis. 3. Fatty liver. 4. Mild diverticulosis without active diverticulitis suggested. Abdomen Ultrasound 03/21/17 09:27 IMPRESSION: 1. Normal-appearing gallbladder. 2. Enlarged fatty liver. Assessment & Plan - Diagnosis (1) Acute cholecystitis due to biliary calculus Is this a current diagnosis for this admission?: Yes Plan: Status post laparoscopic cholecystectomy. Patient looks very good. In light of gangrenous cholecystitis we will keep the patient in the hospital for IV antibiotics. Possible discharge later today versus tomorrow.
[2017-03-23] MEDS ORDERED: ACETAMINOPHEN 325 MG TABLET PO PRN (15:15)
--- NOTE | 2017-03-23 15:20 | PDOC PROGRESS REPORT ---
Subjective Progress Note for:: 03/23/17 Subjective:: no c/o, tolerating po well Reason For Visit: ACUTE CHOLECYSTITIS, CHOLEITHIASIS, COCAINE IN Physical Exam Vital Signs: Temp Pulse Resp BP Pulse Ox 98.2 F 83 19 149/75 H 99 03/23/17 11:14 03/23/17 14:00 03/23/17 11:14 03/23/17 11:14 03/23/17 11:14 Pulse Oximeter Continuous Start: 03/22/17 17: 19 Freq: Status: Complete Document 03/22/17 17:19 [facility] (Rec: 03/22/17 17:20 [facility] [email or web address]) Pulse Oximetry Assessment Oxygen Saturation (92-100) 94 Oxygen Flow Rate (L/min) 2 Oxygen Delivery Method Nasal Cannula Equipment Usage Initial Set Up Continuous Pulse Oximeter 24 Hour Charge Charge Now Continuous SpO2 Machine # [id number] Pulse Oximeter Continuous Start: 03/22/17 17: 15 Freq: RTQ4 Status: Complete Document 03/23/17 12:00 [facility] (Rec: 03/23/17 14:27 [facility] [email or web address]) Pulse Oximetry Assessment Equipment Usage Equipment Discontinued Continuous SpO2 Machine # 9 Intake & Output 03/22/17 03/23/17 03/24/17 06:59 06:59 06:59 Intake Total 3850 Output Total 1000 3670 Balance -1000 180 Weight 103.5 kg 106.1 kg General appearance: PRESENT: no acute distress Respiratory exam: PRESENT: clear to auscultation valerio Cardiovascular exam: PRESENT: other - NSR GI/Abdominal exam: PRESENT: normal bowel sounds, soft, other - all incisions are C/D/I Results Laboratory Results: 03/23/17 05:32 03/23/17 05:32 03/23/17 03/23/17 05:32 05:32 WBC 14.7 H RBC 5.31 Hgb 16.4 Hct 47.9 MCV 90 MCH 30.9 MCHC 34.3 RDW 12.7 Plt Count 246 Sodium 137.1 Potassium 4.7 Chloride 99 Carbon Dioxide 30 Anion Gap 8 BUN 9 Creatinine 0.87 Est GFR ( Amer) > 60 Est GFR (Non-Af Amer) > 60 Glucose 83 Calcium 9.7 Total Bilirubin 1.1 AST 53 ALT 89 H Alkaline Phosphatase 55 Total Protein 6.3 Albumin 3.8 Impressions: Abdomen/Pelvis CT 03/21/17 00:00 IMPRESSION: 1. No acute abdominopelvic abnormality. 2. Cholelithiasis. 3. Fatty liver. 4. Mild diverticulosis without active diverticulitis suggested. Abdomen Ultrasound 03/21/17 09:27 IMPRESSION: 1. Normal-appearing gallbladder. 2. Enlarged fatty liver. Assessment & Plan - Diagnosis (1) Acute cholecystitis due to biliary calculus Is this a current diagnosis for this admission?: Yes Plan: Keep in hospital until tomorrow Advance diet to regular HL IVF Continue IV Abx Blood work in AM Stop IV narcotics, Tylenol prn for pain
[2017-03-24] MEDS: PIPERACILLIN SODIUM/TAZOBACTAM 3.375 GM in NORMAL SALINE 100 ML IV SCH ×2 (03:03→08:57)
[2017-03-24 07:12] LABS: ABSOLUTE EOSINOPHILS # (AUTO) 0.2 10^3/uL (0.0-0.6); ABSOLUTE LYMPHOCYTES (AUTO) 2.1 10^3/uL (0.5-4.7); ABSOLUTE MONOCYTES (AUTO) 1.1 10^3/uL (0.1-1.4); ABSOLUTE NEUT (AUTO) 6.4 10^3/uL (1.7-8.2); BASOPHILS % (AUTO) 0.3 % (0-2); EOSINOPHILS % (AUTO) 1.7 % (0-6); HEMOGLOBIN 15.8 g/dL (13.5-17.0); LYMPHOCYTES % (AUTO) 21.9 % (13-45); MEAN CORPUSCULAR HEMOGLOBIN 31.1 pg (27.0-33.4); MEAN CORPUSCULAR HGB CONC 34.3 g/dL (32.0-36.0); MEAN CORPUSCULAR VOLUME 91 fl (80-97); MONOCYTES % (AUTO) 11.2 % (3-13); PLATELET COUNT 228 10^3/uL (150-450); RED BLOOD COUNT 5.08 10^6/uL (4.35-5.55); RED CELL DISTRIBUTION WIDTH 12.6 % (11.5-14.0); SEGMENTED NEUTROPHILS % (AUTO) 64.9 % (42-78); TOTAL CELLS COUNTED % (AUTO) 100 %; WHITE BLOOD COUNT 9.8 10^3/uL (4.0-10.5)
[2017-03-24 07:34] LABS: ALANINE AMINOTRANSFERASE 79 U/L (21-72); ALBUMIN 3.4 g/dL (3.5-5.0); ALKALINE PHOSPHATASE 49 U/L (38-126); ANION GAP 7 (5-19); ASPARTATE AMINO TRANSFERASE 34 U/L (17-59); BILIRUBIN,DIRECT 0.2 mg/dL (0.0-0.4); BILIRUBIN,TOTAL 0.5 mg/dL (0.2-1.3); BLOOD UREA NITROGEN 8 mg/dL (7-20); CARBON DIOXIDE 31 mmol/L (22-30); CHLORIDE 101 mmol/L (98-107); GLUCOSE 100 mg/dL (75-110); SODIUM 138.6 mmol/L (137-145); TOTAL PROTEIN 5.7 g/dL (6.3-8.2)
--- NOTE | 2017-03-24 12:34 | PDOC PROGRESS REPORT ---
Subjective Progress Note for:: 03/24/17 Subjective:: no c/o, tolerating po well Reason For Visit: ACUTE CHOLECYSTITIS, CHOLEITHIASIS, COCAINE IN Physical Exam Vital Signs: Temp Pulse Resp BP Pulse Ox 97.9 F 71 18 154/92 H 99 03/24/17 12:16 03/24/17 12:16 03/24/17 12:16 03/24/17 12:16 03/24/17 12:16 Pulse Oximeter Continuous Start: 03/22/17 17: 19 Freq: Status: Complete Document 03/22/17 17:19 [facility] (Rec: 03/22/17 17:20 [facility] [email or web address]) Pulse Oximetry Assessment Oxygen Saturation (92-100) 94 Oxygen Flow Rate (L/min) 2 Oxygen Delivery Method Nasal Cannula Equipment Usage Initial Set Up Continuous Pulse Oximeter 24 Hour Charge Charge Now Continuous SpO2 Machine # n9 Pulse Oximeter Continuous Start: 03/22/17 17: 15 Freq: RTQ4 Status: Complete Document 03/23/17 12:00 J (Rec: 03/23/17 14:27 [facility] [email or web address]) Pulse Oximetry Assessment Equipment Usage Equipment Discontinued Continuous SpO2 Machine # 9 Intake & Output 03/23/17 03/24/17 03/25/17 06:59 06:59 06:59 Intake Total 3850 1764 Output Total 3670 1475 Balance 180 289 Weight 106.1 kg 103.3 kg Respiratory exam: PRESENT: clear to auscultation valerio Cardiovascular exam: PRESENT: RRR GI/Abdominal exam: PRESENT: soft, other - incisions are c/d/i Results Laboratory Results: 03/24/17 06:17 03/24/17 06:17 03/24/17 03/24/17 06:17 06:17 WBC 9.8 RBC 5.08 Hgb 15.8 Hct 46.0 MCV 91 MCH 31.1 MCHC 34.3 RDW 12.6 Plt Count 228 Seg Neutrophils % 64.9 Lymphocytes % 21.9 Monocytes % 11.2 Eosinophils % 1.7 Basophils % 0.3 Absolute Neutrophils 6.4 Absolute Lymphocytes 2.1 Absolute Monocytes 1.1 Absolute Eosinophils 0.2 Absolute Basophils 0.0 Sodium 138.6 Potassium 4.0 Chloride 101 Carbon Dioxide 31 H Anion Gap 7 BUN 8 Creatinine 0.79 Est GFR ( Amer) > 60 Est GFR (Non-Af Amer) > 60 Glucose 100 Calcium 9.0 Total Bilirubin 0.5 AST 34 ALT 79 H Alkaline Phosphatase 49 Total Protein 5.7 L Albumin 3.4 L Impressions: Abdomen/Pelvis CT 03/21/17 00:00 IMPRESSION: 1. No acute abdominopelvic abnormality. 2. Cholelithiasis. 3. Fatty liver. 4. Mild diverticulosis without active diverticulitis suggested. Abdomen Ultrasound 03/21/17 09:27 IMPRESSION: 1. Normal-appearing gallbladder. 2. Enlarged fatty liver. Assessment & Plan - Diagnosis (1) Acute cholecystitis due to biliary calculus Is this a current diagnosis for this admission?: Yes - Plan Summary Plan Summary: A/ POD# 2 after pa nica VSS, AF blood work WNL PE unremarkable P/ Home today resume meds and regular diet activities as tolerated shower only x 2 weeks then can shower no wound care needed f/u with Dr. Willis next week Tylenol as needed for pain Augmentin 875 mg po BID x 7 days
[2017-03-24 13:08] VITALS: BP 135/77
--- NOTE | 2017-03-24 20:54 | DISCHARGE SUMMARY E ---
Discharge Summary NAME: CARLOS EVANGELISTA : 1965 AGE: 51Y ADMITTED: 03/21/2017 DISCHARGED: 03/24/2017 FINAL DIAGNOSIS: Cholelithiasis. PROCEDURE: On March 22, the patient underwent a laparoscopic cholecystectomy. COMPLICATIONS: None. HOSPITAL COURSE: This is a 51-year-old male with morbid obesity, who was admitted on March 21 for abdominal pain in the right upper quadrant and found to have cholelithiasis. The patient underwent an uneventful laparoscopic cholecystectomy on March 22, 2017. Following the procedure, patient was transferred to the floor. His postoperative course was unremarkable. The patient was kept on IV antibiotics, because the gallbladder appeared to be very inflamed during . His blood work remained within normal limits and his white blood cell count was within normal limits. On March 24, the patient had no complaints. He was able to tolerate a regular diet. His vital signs were stable. His physical exam was unremarkable with abdomen soft and all incisions were clean, dry and intact. He had a normal white blood cell count and a normal liver profile, except for a slightly elevated AST. The patient was discharged home on March 24. He was given a followup appointment with Dr. Willis within a week. He was instructed to shower only, then bath in 2 weeks, no wound care needed, and activities as tolerated. He was given Augmentin 175 mg p.o. twice a day for 7 days and Tylenol as needed for pain. He was instructed to resume his medications and diet. DICTATING PHYSICIAN: JESSICA CABAN M.D. [id number] PHY#: [id number] ID: [id number] JOB#: [id number] ACCT: [id number] cc:Amol ROMERO MD, M.D. [facility], > [facility]
== END 2017-03-24 13:50 | disposition home or self-care (01) ==
LOC: ER 08:37 → EH 18:12 → INTOOBSV 18:12 → 4N 21:22
PROVIDERS: ATTEND Surgery
PROC: 0FT44ZZ Resection of Gallbladder, Percutaneous Endoscopic Approach (ICD-10-PCS; principal; 2017-03-22 13:30)
DX: K80.12 Calculus of gallbladder with acute and chronic cholecystitis without obstruction (principal); E66.01 Morbid (severe) obesity due to excess calories; F17.200 Nicotine dependence, unspecified, uncomplicated; F41.9 Anxiety disorder, unspecified; R78.2 Finding of cocaine in blood; Z68.31 Body mass index [BMI] 31.0-31.9, adult
CPT/HCPCS: 96376; 99285; 96361; 96374; 96375; 36415 ×3; 87205; 87070; 83690; 85025 ×2; 85027; 87075; 80053 ×3; 81001; 80307; 88304 ×2; 76705; 74177; 94762 ×2; 47562; J2250; J1100; J3490 ×4; J3010; J2270 ×3; J1170 ×3; S0164; J0330; J2405 ×2; J7030 ×2; J2704; J2543 ×4; J0131; 790